=== PATIENT | male | born 1990 | race Caucasian/White ===

== ENCOUNTER 2017-04-05 08:17 | Emergency (ER) | payer OTHER ==
[2017-04-05 08:39] VITALS: BP 137/75
[2017-04-05] MEDS ORDERED: Ketorolac INJ* 30 MG/ML 1 ML VIAL IM ONE (08:54)
--- NOTE | 2017-04-05 08:54 | UC ---
Dental HPI - HPI Summary HPI Summary: 27 male presents to with complaints of right upper side dental pain that began on Wednesday and worsened last night. Patient states he has not been to a dentist in a while. States he knows of fractured teeth and cavities that have no been taken care of. Tried taking tylenol with little relief. Denies drainage , swelling and difficulty swallowing/breathing. No other complaints. Denies fever/chills and headache. No PMHx. - History of Current Complaint Chief Complaint: UCDentalProblem Stated Complaint: DENTAL COMPLAINT Time Seen by Provider: 04/05/17 08:35 Hx Obtained From: Patient Onset/Duration: Sudden Onset, Lasting Days, Still Present, Worse Since Severity: Moderate Pain Intensity: 8 Pain Scale Used: 0-10 Numeric Aggravating Factor(s): Chewing Alleviating Factor(s): OTC Meds - tylenol, little relief - Allergies/Home Medications Allergies/Adverse Reactions: Allergies Allergy/AdvReac Type Severity Reaction Status Date / Time No Known Allergies Allergy Verified 04/05/17 08:35 Home Medications: Home Medications Acetaminophen ADULT LIQ* [Tylenol ADULT LIQ*] 650 mg PO Q4H PRN 04/05/17 [ History Confirmed 04/05/17] PMH/Surg Hx/FS Hx/Imm Hx - Additional Past Medical History Additional PMH: Denies PMHx, no HTN or asthma. does wear hearing aid - Surgical History Surgical History: None - Family History Known Family History: Positive: Hypertension - Social History Alcohol Use: None Substance Use Type: None Smoking Status (MU): Never Smoked Tobacco Review of Systems Constitutional: Negative ENT: Dental Pain Respiratory: Negative Cardiovascular: Negative Neurological: Negative All Other Systems Reviewed And Are Negative: Yes Physical Exam Triage Information Reviewed: Yes Appearance: Well-Appearing, No Pain Distress, Well-Nourished Vital Signs: Initial Vital Signs Temp 98.5 F 04/05/17 08:35 Pulse 92 04/05/17 08:35 Resp 18 04/05/17 08:35 BP 137/75 04/05/17 08:35 Vital Signs Reviewed: Yes Eyes: Positive: Conjunctiva Clear ENT: Positive: Normal ENT inspection, Hearing grossly normal, Pharynx normal, TMs normal, Uvula midline, Other - no sign of peritonsillar abscess, airway patent. Negative: Tonsillar swelling, Tonsillar exudate Dental: Positive: Gross Decay/Caries @ - erythema to right #1-2 gums surrounding. no obvious sign of abscess, edema or drainage, Dental Fracture @ Neck: Positive: Supple, Nontender, No Lymphadenopathy Respiratory: Positive: Chest non-tender, Lungs clear, Normal breath sounds, No respiratory distress, No accessory muscle use Cardiovascular: Positive: RRR, No Murmur, Pulses Normal Musculoskeletal: Positive: Strength Intact Neurological: Positive: Alert Skin Exam: Normal Dental Complaint Course/Dx - Course Course Of Treatment: appears to be suffering from toothache/dental infection due to dental caries and dental fracture. encouraged dentist follow up. will give amoxicillin to prevent infection, ibuprofen, good oral hygiene, warm compresses, salt water swishes. given toradol for relief while in UC. aware of worsening signs and symptoms. given list of nearby dentists. follow up. no concern for other emergent etiology at this time. - Differential Dx/Diagnosis Differential Diagnosis/Dx: Dental Abscess, Dental Caries, Fractured Tooth Provider Diagnoses: toothache, dental infection Discharge - Discharge Plan Condition: Good Disposition: HOME Prescriptions: Amoxicillin SUSP (*) 500 mg PO BID #1 bottle Ibuprofen ADULT LIQ* [Motrin LIQ ADULT*] 600 mg PO Q8HR #1 bottle Patient Education Materials: Dental Abscess (ED), Toothache (ED) Referrals: Non Staff,Doctor [Primary Care Provider] - Additional Instructions: Take prescribed medication as directed. Do not take ibuprofen until tomorrow. Finish antibiotic until entire dose is finished. You may take tylenol for any break through pain today. Increase fluid intake. Apply warm compresses to area of pain. Salt water swishes. Topical orajel may give you relief. Keep good oral hygiene, brushing often. Please follow up with dentist. Any new or worsening signs/symptoms please seek medical attention promptly.
== END 2017-04-05 09:36 | disposition home or self-care (01) ==
LOC: UCCORT 08:17
DX: K04.7 Periapical abscess without sinus (principal); K08.89 Other specified disorders of teeth and supporting structures
CPT/HCPCS: 96372; 99212; G0463; J1885